=== PATIENT | female | born 1955 | race Caucasian/White ===

== ENCOUNTER → 2017-05-06 | Outpatient (CLI) | payer OTHER ==
--- NOTE | 2017-05-06 16:43 | MAMMOGRAPHY REPORT ---
BILATERAL DIGITAL SCREENING MAMMOGRAM TOMOSYNTHESIS WITH CAD: 05/06/2017 CLINICAL HISTORY: Routine screening. Patient has no complaints. TECHNIQUE: Breast tomosynthesis in addition to standard 2D mammography was performed. Current study was also evaluated with a Computer Aided Detection (CAD) system. COMPARISON: Comparison is made to exams dated: 10/30/2012 mammogram, 10/29/2011 mammogram, 05/16/2010 mammogram, 10/02/2006 mammogram - [facility], 06/11/2007, and 06/11/2007. BREAST COMPOSITION: There are scattered areas of fibroglandular density in both breasts. FINDINGS: There are 2 possible areas of architectural distortion in the lateral right breast, best s een on the CC tomosynthesis images (slice 34 and 43), for which additional spot compression tomosynth esis views and possibly ultrasound are recommended. There are benign appearing calcifications scattered in the breasts. No other suspicious mass, archite ctural distortion or cluster of microcalcifications is seen. IMPRESSION: ACR BI-RADS CATEGORY 0: INCOMPLETE EVALUATION: NEED ADDITIONAL IMAGING EVALUATION The 2 possible areas of architectural distortion in the lateral right breast need additional evaluati on. The patient will be called to schedule an appointment. Approximately 10% of breast cancers are not detected with mammography. A negative mammographic report should not delay biopsy if a clinically suggestive mass is present. Tawnya Luke M.D. ay/:05/06/2017 16:08:45 Machine Staker: Amy Fitzpatrick, [facility] letter sent: Addl Imaging 0 BI-RADS Code: ACR BI-RADS Category 0: Incomplete Evaluation: Need Additional Imaging Evaluation
== END | disposition home or self-care (01) ==
LOC: C.MAMM 15:39
PROVIDERS: ATTEND Internal Medicine
DX: Z12.31 Encounter for screening mammogram for malignant neoplasm of breast (principal); N64.89 Other specified disorders of breast

== ENCOUNTER → 2017-05-15 | Outpatient (CLI) | payer OTHER ==
--- NOTE | 2017-05-15 14:34 | MAMMOGRAPHY REPORT ---
UNILATERAL RIGHT DIGITAL DIAGNOSTIC MAMMOGRAM TOMOSYNTHESIS AND TARGETED RIGHT ULTRASOUND: 05/15/2017 CLINICAL HISTORY: Callback from screening mammogram for questionable right breast architectural disto rtion. TECHNIQUE: Breast tomosynthesis in addition to standard 2D mammography was performed. Spot compress ion right CC and MLO 2-D and tomosynthesis images were obtained. COMPARISON: Comparison is made to exams dated: 05/06/2017 mammogram, 10/30/2012 mammogram, 10/29/2011 mammogram, 05/16/2010 mammogram - [facility], 06/11/2007, and 06/11/2007. BREAST COMPOSITION: There are scattered areas of fibroglandular density in the right breast. FINDINGS: Spot compression views demonstrate 2 persistent possible areas of architectural distortion within the right lateral breast seen on the cc tomosynthesis images (slice 43 and 35/80), possibly p rojecting superiorly on the MLO view (slices 44 and 35/82). Targeted ultrasound was performed of the right lateral breast in the region of the possible distortio ns. In the right breast at 9:00 periareolar region, there are two adjacent small anechoic benign cys ts versus a cyst with a thin internal septation. Immediately adjacent to this is a focal ill-defined hypoechoic shadowing region with possible architectural distortion best seen on the tomosynthesis im ages. The area is ill-defined and difficult to measure but measures at least 3 x 6 mm. This may cor respond with the more anterior area of distortion seen mammographically. The breast tissue is marked ly heterogeneous on ultrasound with multiple areas of shadowing seen, which limits the ultrasound exa m. There is one other ill-defined hypoechoic region in the right breast at 9:00, 5 cm from the nippl e, best seen on the antiradial imaging but somewhat effaces on orthogonal imaging and may represent n ormal shadowing fibroglandular tissue. Given the decreased sensitivity on ultrasound, recommend bila teral breast MRI to further evaluate the areas of distortion. IMPRESSION: ACR BI-RADS CATEGORY 0: INCOMPLETE EVALUATION: NEED ADDITIONAL IMAGING EVALUATION, TARG ETED ULTRASOUND ACR BI-RADS CATEGORY 0: INCOMPLETE EVALUATION: NEED ADDITIONAL IMAGING EVALUATION Two persistent probable areas of architectural distortion within the right lateral breast mammographi zulma. The ultrasound exam is limited due to shadowing of normal fibroglandular tissue; however, one ill-defined hypoechoic region in the right 9:00 periareolar region may correspond with one of the ar eas of architectural distortion. Recommend bilateral breast MRI for further evaluation. The patient has been verbally notified of the results. Approximately 10% of breast cancers are not detected with mammography. A negative mammographic report should not delay biopsy if a clinically suggestive mass is present. Jaci Barry M.D. ah/:05/15/2017 12:08:50 Spouter: Amy Fitzpatrick, [facility] letter sent: Addl Imaging 0 BI-RADS Code: ACR BI-RADS Category 0: Incomplete Evaluation: Need Additional Imaging Evaluation Ult rasound BI-RADS: ACR BI-RADS Category 0: Incomplete Evaluation: Need Additional Imaging Evaluation
== END | disposition home or self-care (01) ==
LOC: C.MAMM 10:26
PROVIDERS: ATTEND Internal Medicine
DX: R92.8 Other abnormal and inconclusive findings on diagnostic imaging of breast (principal)

== ENCOUNTER → 2018-03-16 | Outpatient (CLI) | payer OTHER ==
--- NOTE | 2018-03-17 09:00 | MAMMOGRAPHY REPORT ---
UNILATERAL RIGHT DIGITAL DIAGNOSTIC MAMMOGRAM TOMOSYNTHESIS WITH CAD AND TARGETED RIGHT ULTRASOUND: CLINICAL HISTORY: 62-year-old woman initially called back from screening mammography dated 05/06/2017 for possible areas of architectural distortion in the lateral right breast. Left diagnostic mammogra m and targeted ultrasound demonstrated probable persistent areas of distortion but sonographic correl ates were vague as there were areas of shadowing throughout the lateral right breast and it was uncle ar if this represented normal glandular tissue or subtle areas of distortion. A breast MRI was recom mended. The breast MRI was subsequently performed at an outside institution which did not demonstrat e any suspicious masses or abnormal enhancement and a 6 month follow-up mammogram was recommended. TECHNIQUE: Right breast tomosynthesis in addition to standard 2D mammography was performed. Current s mark was also evaluated with a Computer Aided Detection (CAD) system. COMPARISON: Comparison is made to exams dated: 05/15/2017 ultrasound, 05/15/2017 mammogram, 05/06/2017 mammogram, 10/30/2012 mammogram, 10/29/2011 mammogram, and 05/16/2010 mammogram - [facility]. BREAST COMPOSITION: There are scattered areas of fibroglandular density in the right breast. FINDINGS: On the 2D right CC and MLO views, the glandular pattern appears similar to prior mammograms . On the tomosynthesis images, there is still a probable area of architectural distortion in the lat eral, middle one third of the right breast on CC tomosynthesis slice 43/79, and a second palpable are a surrounding a 5 mm partially circumscribed and obscured mass in the lateral, middle one third of th e right breast on CC tomosynthesis slice 34. Currently, a possible third area of distortion is ident ified on CC tomosynthesis slice 16/79 in the lateral, middle one third of the breast. These are thou ght to project superiorly based on the MLO view; 2 areas of probable distortion are identified on MLO slice 43/82 and 33/82. Targeted ultrasound was performed throughout the lateral right breast. A lobulated anechoic cyst and probable adjacent smaller cyst is identified in the 10:00 right breast, 1 cm from the nipple, measur ing 4.7 x 3.9 x 4.8 mm. This was previously labeled 9:00. There are ill-defined areas of shadowing in the 9:00 right breast, 4 cm from the nipple, and in the 12:00 right breast, 1 cm from the nipple. It is unclear if this represents shadowing glandular tissue or could represent the areas of distorti on. Review of the prior outside MRI did not definitely demonstrate a well-defined area of distortion on the T1 [id number] images or abnormal enhancement. Nevertheless, given the mammographic fi nding of persistent distortion, definitive characterization with tissue sampling is recommended, idea lly of 2 of the areas if they are visualized at stereotactic tomosynthesis guided biopsy. IMPRESSION: ACR BI-RADS CATEGORY 4: SUSPICIOUS, TARGETED ULTRASOUND ACR BI-RADS CATEGORY 4: SUSPICIO US Right breast stereotactic tomosynthesis guided biopsy is recommended, as the probable areas of distor tion in the lateral right breast persist on today's imaging. Ideally biopsy of the 2 most prominent areas of distortion is recommended, the first of which appears to be associated with a cyst identifie d in the 9:0010:00 anterior right breast on ultrasound, and the second is slightly medial and shipfitters supervisor ior to the first. These results and recommendations were discussed with the patient at the time of the exam. She tenta tively schedule the right breast stereotactic biopsies prior to leaving our department. Approximately 10% of breast cancers are not detected with mammography. A negative mammographic report should not delay biopsy if a clinically suggestive mass is present. Tawnya Luke M.D. ay/:03/16/2018 09:48:33 Sewing Machine Operator Floorperson: Amy Fitzpatrick, [facility] letter sent: Abnormal 4/5 BI-RADS Code: ACR BI-RADS Category 4: Suspicious Ultrasound BI-RADS: ACR BI-RADS Category 4: Suspici ous
== END | disposition home or self-care (01) ==
LOC: C.MAMM 08:48
PROVIDERS: ATTEND Internal Medicine
DX: R92.8 Other abnormal and inconclusive findings on diagnostic imaging of breast (principal)

== ENCOUNTER → 2018-03-24 | Outpatient (CLI) | payer OTHER ==
--- NOTE | 2018-03-24 13:42 | Discharge Instructions ---
Discharge Instructions Procedure Procedure Date: March 24, 2018. Reason for visit: Right Distortions X2. Discharge Discharge Date: March 24, 2018. Discharge Diagnosis: post right breast stereotactic rut guided biopsy x 2 Instructions Activity Recommendations: Additional Limitations (see below) Return to School/Work: no limitations Recommended Home Diet: No Limitations Provider Instructions: ACTIVITY RECOMMENDATIONS: * No lifting, pushing, pulling or exercising the affected side for three days. RETURN TO SCHOOL/WORK: * You may return to work/school after the procedure, but do not perform any strenuous activities for 24 to 48 hours. MEDICATIONS: * Tylenol (two 325 mg) every four to six hours if needed for mild pain (if not allergic to Tylenol). DIET: * Resume previous diet. SPECIAL CARE INSTRUCTIONS: * Keep biopsy site dry for 24 hours. May shower after 24 hours, but do not soak (bathe) incision. * May remove Tegaderm (plastic patch) tomorrow AFTER showering. * Leave the steri-strips on for one week. Allow the steri-strips to fall off by themselves. If not off after one week, you may remove them. You may place a Bandaid crosswise over the strips, if desired. * Apply ice 10 minutes on and 10 minutes off as needed. * Wear a bra at bedtime to sleep more comfortably for 2-3 days. * Your referring physician should have the results after approximately 5 to 7 business days. * Call for unusual bleeding, fever, drainage, etc or if you have any questions call [phone] during normal business hours or after hours call Dr Luke, . FOLLOW UP VISIT: Follow-up with Referring Physician as scheduled. Allergies Coded Allergies: Macrolides (Verified Allergy, Unknown, 12/22/09) Uncoded Allergies: ERYTHROMYCIN (Generic Allergy) (Allergy, Intermediate, Y, 12/30/02) RASH ERYTHROMYCIN=RASH (Allergy, Unknown, 12/30/02) N (Allergy, Unknown, 12/30/02) NFA (Allergy, Unknown, 12/30/02) NO (Allergy, Unknown, 12/30/02) UNKNOWN (Allergy, Unknown, 12/30/02) Iam Petersen Recommendations: Call your doctor if: * Temperature above 101 degrees * Pain not relieved by pain medicine ordered * There is increased drainage or redness from any incision * You have any unanswered questions or concerns. Your Doctors Instructions noted above were prepared by provider Tawnya Luke. Patient Signature Section: Patient Instructions Signature Page Susanne Blackman Patient (or Guardian) Signature/Date: I have read and understand the instructions given to me by my caregivers. Caregiver/RN/Doctor Signature/Date: The above-named patient and/or guardian has received patient instructions on this date. + Original Patient Signature Page (only) stays with chart. Please make copy for patient.
--- NOTE | 2018-03-24 15:14 | MAMMOGRAPHY REPORT ---
MULTIPLE STEREOTACTIC GUIDED BIOPSIES RIGHT BREAST: 03/24/2018 CLINICAL HISTORY: 62-year-old woman with areas of architectural distortion in the lateral right breas t. She presents for stereotactic tomosynthesis guided biopsy. COMPARISON: Comparison is made to exams dated: 03/16/2018 ultrasound, 03/16/2018 mammogram, 05/15/2017 ultrasound, 05/15/2017 mammogram, 05/06/2017 mammogram, and 10/30/2012 mammogram - [facility]. PATIENT CONSENT: After explaining the risks, benefits and alternatives of the procedure to the patien t, informed consent was obtained both verbally and in writing. Specific risks include: Bleeding, inf ection, puncture of adjacent structure, pain, nontarget biopsy, sampling error, metal allergy and med ication reaction. PROCEDURE DESCRIPTION: A time-out was performed and the right breast was confirmed as the site of bio psy. The patient was placed prone on the stereotactic biopsy table and the breast was placed in CC fr om above compression. A tomosynthesis program director scouting view was obtained that redemonstrates 2 prominent areas o f distortion in question. They are amenable to sterotactic tomosynthesis guided biopsy, and were tar geted utilizing the coordinates obtained by the computer. The first distortion targeted was located slightly medial and posterior in the middle one third of the breast. The skin of the superior right breast was prepped with Betadine. 1% Lidocaine with and without epinipherine was administered as loca l anesthesia. A small skin incision was made. Through the incision, the needle was inserted to the d epth determined by the computer. 12 samples were obtained using a [employer] Eviva 9-gauge vacuum-assisted biopsy device. The post biopsy tomosynthesis view demonstrates an air pocket within the center of t he distortion and therefore a dumbbell shaped metallic biopsy marker clip was placed at the site. He mostasis was achieved after 5 minutes of manual compression. Then the second smaller area of distortion adjacent to a mass (previously documented to represent a c yst on ultrasound) was targeted for biopsy. Additional 1% buffered lidocaine without epinephrine was administered as local anesthesia. 14 core biopsy samples were obtained with a [employer] Eviva 9-gauge v acuum-assisted biopsy device. Specimen radiographs were obtained as there are possible faint microca lcifications projecting over the area of distortion on the program director scouting image, but these calcifications coul d have been within the adjacent cyst. The specimen radiograph did not definitively yield calcificati ons, but a T-shaped biopsy marker clip was placed at this site, which is located slightly lateral and anterior to the first biopsy. Hemostasis was achieved after several minutes of manual compression. The samples were sent to pathology in two appropriately labeled containers, "A" and "B" denoting each biopsy site. Postprocedure CC and ML tomosynthesis views of the right breast were obtained. A new dumbbell-shape d biopsy marker clip is seen in the upper outer middle one third of the right breast, denoting the si te of first stereotactic tomosynthesis biopsy. A T-shaped biopsy marker clip and no significant claudine antonio are seen in the upper outer anterior right breast denoting the second site of biopsy. Based on the postprocedure CC projection, the biopsy marker clips and biopsy cavity air pockets align well wit h the intended areas of distortion. IMPRESSION: STEREOTACTIC GUIDED BIOPSY Status post right breast stereotactic tomosynthesis guided biopsy 2 in the lateral breast. The patient will receive notification of the biopsy results from her referring physician. Tawnya Luke M.D. ay/:03/24/2018 14:10:30 Attending Technologist: Amy Fitzpatrick, [facility] Fuel System Maintenance Supervisor: Una FITZPATRICK)(Leticia), [facility]
--- NOTE | 2018-03-24 15:14 | MAMMOGRAPHY REPORT ---
UNILATERAL RIGHT DIGITAL DIAGNOSTIC MAMMOGRAM TOMOSYNTHESIS: 03/24/2018 CLINICAL HISTORY: Areas of architectural distortion in the lateral right breast seen on tomosynthesis images. Patient presents for stereotactic tomosynthesis guided biopsy of 2 of the most prominent ar eas of distortion. Please refer to the report from right breast stereotactic tomosynthesis guided biopsy performed at [facility] same time for full detail. IMPRESSION: POST PROCEDURE IMAGING FOR MARKER PLACEMENT Please refer to the report from right breast stereotactic tomosynthesis guided biopsy performed at e same time for full detail. Approximately 10% of breast cancers are not detected with mammography. A negative mammographic report should not delay biopsy if a clinically suggestive mass is present. Tawnya Luke M.D. ay/:03/24/2018 13:43:21 Charge Accounts Audit Clerk: Amy Fitzpatrick, [facility] BI-RADS Code: Post Procedure Imaging For Marker Placement
--- NOTE | 2018-03-24 15:14 | MAMMOGRAPHY REPORT ---
STEREOTACTIC GUIDED BIOPSY RIGHT BREAST: 03/24/2018 CLINICAL HISTORY: Areas of architectural distortion in the lateral right breast seen on tomosynthesis images. Patient percent for stereotactic tomosynthesis guided biopsy of the 2 most prominent areas of distortion seen mammographically. Please refer to the report from right breast stereotactic tomosynthesis guided biopsy performed at [facility] same time for full detail. IMPRESSION: STEREOTACTIC GUIDED BIOPSY Please refer to the report from right breast stereotactic tomosynthesis guided biopsy performed at [facility] same time for full detail. Tawnya Luke M.D. ay/:03/24/2018 13:44:09 Attending Technologist: Amy Fitzpatrick, [facility] Information Technology Analyst: Una KHAN(Martha)(Leticia), [facility]
== END | disposition home or self-care (01) ==
LOC: C.MAMM 12:29
PROVIDERS: ATTEND Internal Medicine
DX: N64.9 Disorder of breast, unspecified (principal); N60.21 Fibroadenosis of right breast; R92.1 Mammographic calcification found on diagnostic imaging of breast; N60.11 Diffuse cystic mastopathy of right breast